=== PATIENT | male | born 1995 | race Two or more races ===

== ENCOUNTER → 2016-12-30 | Outpatient (REF) | payer OTHER ==
[2016-12-30 12:48] LABS: BASO % 0.6 % (0.0-1.0); EOS # 0.2 K/mm3 (0.0-0.50); LARGE UNSTAINED CELL # 0.1 K/mm3 (0.0-0.4); LARGE UNSTAINED CELL % 1.9 % (0.0-4.0); LYMPH # 2.1 K/mm3 (1.5-6.5); LYMPH % 39.9 % (24.0-44.0); MEAN CORPUSCULAR HEMOGLOBIN 29.3 pg (27.0-33.0); MEAN CORPUSCULAR HGB CONC 34.5 g/dl (32.0-36.5); MONO # 0.4 K/mm3 (0.0-0.8); MONO % 7.9 % (0.0-5.0); NEUTROPHILS # 2.4 K/mm3 (1.8-7.7); NEUTROPHILS % 46.7 % (36.0-66.0); PLATELET COUNT, AUTOMATED 258 k/mm3 (150-450); WHITE BLOOD COUNT 5.2 K/mm3 (4.0-10.0)
[2016-12-30 12:53] LABS: ALBUMIN 3.6 GM/DL (3.2-5.2); ALBUMIN/GLOBULIN RATIO 1.24 (1.00-1.93); ALKALINE PHOSPHATASE 47 U/L (45-117); ALT/SGPT 84 U/L (12-78); ANION GAP 11 MEQ/L (8-16); AST/SGOT 36 U/L (15-37); BILIRUBIN,TOTAL 0.9 MG/DL (0.2-1.0); BLOOD UREA NITROGEN 13 MG/DL (7-18); CALCIUM LEVEL 8.6 MG/DL (8.5-10.1); CARBON DIOXIDE LEVEL 25 MEQ/L (21-32); CHLORIDE LEVEL 106 MEQ/L (98-107); CHOLESTEROL LEVEL 165 MG/DL (<200); CREATININE FOR GFR 0.87 MG/DL (0.70-1.30); GLUCOSE, FASTING 100 MG/DL (70-105); POTASSIUM SERUM 4.3 MEQ/L (3.5-5.1); SODIUM LEVEL 142 MEQ/L (136-145); TOTAL PROTEIN 6.5 GM/DL (6.4-8.2); TRIGLYCERIDES LEVEL 114 MG/DL (<150)
== END ==
LOC: M SFHCPLAZ 09:44
PROVIDERS: ATTEND Physician Assistant
DX: Z13.0 Encounter for screening for diseases of the blood and blood-forming organs and certain disorders involving the immune mechanism (principal); E66.9 Obesity, unspecified; Z13.220 Encounter for screening for lipoid disorders

== ENCOUNTER → 2017-01-05 | Outpatient (REF) | payer OTHER ==
[2017-01-05 15:09] LABS: FERRITIN 97 NG/ML (26-388); PERCENT SATURATION 28.9 % (19.7-50.0); TOTAL IRON BINDING CAPACITY 336 UG/DL (250-450)
== END ==
LOC: M SFHCPLAZ 11:22
PROVIDERS: ATTEND Physician Assistant
DX: R79.89 Other specified abnormal findings of blood chemistry (principal)

== ENCOUNTER → 2017-01-07 | Outpatient (CLI) | payer OTHER ==
--- NOTE | 2017-01-07 09:34 | REP ---
Clinical: Elevated liver function tests . Technique: Cowan scale ultrasound using curved array transducer. Findings: The liver demonstrate subtle fatty infiltration with suspected focal fatty sparing adjacent to the gallbladder fossa. Small 1.9 cm hypoechoic area in the medial anterior right lobe of the liver may represent focal fatty sparing and less likely underlying lesion. The pancreas is limited in evaluation due to interposed bowel gas but visualized portions appear normal. The gallbladder is normal without gallstones, wall thickening or pericholecystic fluid. No biliary ductal dilatation is appreciated, and the common bile duct measures 4.0 mm diameter. The right kidney is normal in reniform shape without hydronephrosis and measures 13.9 x 7.9 x 5.3 cm. No ascites. Visualized portions of the abdominal aorta normal. Impression: 1. Mild fatty infiltration with fatty sparing. Subtle 1.9 cm hypoechoic area in the right lobe also likely represents an element of fatty sparing. 2. Otherwise normal right upper quadrant and liver ultrasound. Signed by Yuri Vicente MD 01/07/2017 09:26 A
== END ==
LOC: M RAD 08:07
PROVIDERS: ATTEND Nurse Practitioner Psychiatric/Mental Health
DX: K76.0 Fatty (change of) liver, not elsewhere classified (principal)